=== PATIENT | female | born 1945 | race Caucasian/White ===

== ENCOUNTER 2020-08-26 00:54 | Emergency (ER) | payer MEDICARE, OTHER ==
--- NOTE | 2020-08-26 01:36 | EDM.PDOC ---
ED HPI GENERAL MEDICAL PROBLEM - General Chief Complaint: General Stated Complaint: [facility] Time Seen by Provider: 08/26/20 01:03 Source of Information: Reports: Patient History Limitations: Reports: Physical Impairment (Very hard of hearing) - History of Present Illness INITIAL COMMENTS - FREE TEXT/NARRATIVE: Mrs. Mcbride is a very pleasant 74-year-old woman who is now brought to the ED by EMS for generalized weakness. She states that she had COVID-19 in April 2020, then received her first Covid vaccine this past , 08/19/2020. She states that she developed a local inflammatory reaction to her arm that same night, with warmth and redness. She applied an ice pack to the area on 08/20/2020. He states that she developed itchy hives on 08/21/2020, which persisted through Sunday morning, 08/23/2020. She applied cortisone 10 cream. She was seen at the [facility] on Sunday, and was told to take Claritin, 1 tablet/day as long as she had itchiness, however, she states that she needed to take it for only 1 day, because the itchy hives had resolved by 08/24/2020. That same day, however, she states that she developed watery diarrhea, which has persisted. Also reports having some nausea, but no vomiting. Abdominal pain. No recent fever. No urinary symptoms. The patient states that she has been taking Pepto-Bismol either once or twice a day since Sunday, including 2 doses yesterday and 2 doses this morning. Here in the ED, the patient is found to be hemodynamically stable, afebrile, saturating 98% on room air. Prior to , 08/19/2020, the patient denies having a recent fever, chills, sore throat, ear pain, nasal or sinus congestion, cough, dyspnea, chest pain, palpitations, nausea, vomiting, constipation, diarrhea, abdominal pain, urinary symptoms, recent weight gain or weight loss, recent bloody bowel movements or black bowel movements, recent joint aches, headaches, or rashes. The patient's PCP is Dr. Helder John. She already received an influenza vaccine this season. Treatments [employer]: Reports: IV/IO - Related Data Allergies Allergy/AdvReac Type Severity Reaction Status Date / Time No Known Allergies Allergy Verified 08/26/20 01:05 Home Meds: Home Meds Ondansetron [Zofran ODT] 1 tab PO Q8H PRN #10 tab.dis 08/26/20 [Rx] Past Medical History HEENT History: Reports: Hard of Hearing, Impaired Vision Cardiovascular History: Reports: High Cholesterol, Hypertension, Other (See Below) (Temporal arteritis) Gastrointestinal History: Reports: Bowel Obstruction (s/p laparotomy), GERD (untreated) Genitourinary History: Reports: Urinary Incontinence (stress incontinence) Musculoskeletal History: Reports: Osteoarthritis Oncologic (Cancer) History: Reports: Breast (right, dx'd Jun 2004, s/p lumpectomy, CTx, RTx) - Infectious Disease History Infectious Disease History: Reports: Novel Coronavirus - Past Surgical History HEENT Surgical History: Reports: Cataract Surgery (bilateral), Oral Surgery (dental extractions) GI Surgical History: Reports: Appendectomy, Lysis of Adhesions (Exploratory laparotomy for SBO) Female Surgical History: Reports: Hysterectomy (complete) Oncologic Surgical History: Reports: Biopsy of Breast (right), Lumpectomy (right) Social & Family History - Tobacco Use Tobacco Use Status *Q: Never Tobacco User - Alcohol Use Alcohol Use History: No - Recreational Drug Use Recreational Drug Use: No - Living Situation & Occupation Living situation: Reports: , Alone Occupation: Retired ED ROS GENERAL - Review of Systems Review Of Systems: Comprehensive ROS is negative, except as noted in HPI. ED EXAM, GENERAL - Physical Exam Exam: See Below Exam Limited By: No Limitations General Appearance: Alert, WD/WN, No Apparent Distress Eye Exam: Bilateral Eye: EOMI, Normal Inspection Ears: Normal External Exam, Hearing Loss Nose: Normal Inspection Throat/Mouth: Normal Inspection, Normal Lips, Normal Voice, No Airway Compromise Head: Atraumatic, Normocephalic Neck: Normal Inspection, Full Range of Motion Respiratory/Chest: No Respiratory Distress, Lungs Clear, Normal Breath Sounds, No Accessory Muscle Use Cardiovascular: Normal Peripheral Pulses, Regular Rate, Rhythm, No Edema, No Gallop, No JVD, No Murmur, No Rub Peripheral Pulses: 3+: Radial (L), Radial (R) GI/Abdominal: Normal Bowel Sounds, Soft, Non-Tender, No Organomegaly, No Distention, No Abnormal Bruit, No Mass Back Exam: Normal Inspection, Full Range of Motion, NT Extremities: Normal Inspection, Normal Range of Motion, No Pedal Edema, Normal Capillary Refill Neurological: Alert, Oriented, Normal Cognition, No Motor/Sensory Deficits Psychiatric: Normal Affect Skin Exam: Warm, Dry, Intact, Normal Color, No Rash #1 Interpretation EKG Date: 08/26/20 Time: 01:45 Rhythm: NSR Rate (Beats/Min): 78 [place]: Normal P-Wave: Present QRS: Other (Late transition) ST-T: Normal QT: Normal Comparison: NA - No Prior EKG Course - Vital Signs Last Recorded V/S: Last Vital Signs Temp 36.2 C 08/26/20 01:03 Pulse 80 08/26/20 01:03 Resp 16 08/26/20 01:03 BP 116/68 08/26/20 01:03 Pulse Ox 98 08/26/20 01:03 Orthostatic Blood Pressure [ 93/66 Standing] Orthostatic Blood Pressure [ 107/75 Sitting] Orthostatic Blood Pressure [ 109/57 Supine] - Orders/Labs/Meds Orders: Active Orders 24 hr Category Date Time Status EKG Documentation Completion [RC] STAT Care 08/26/20 01:29 Active Orthostatic Vital Signs [RC] STAT Care 08/26/20 01:29 Active Ang Chest [CT] Stat Exams 08/26/20 02:56 Taken Labs: Laboratory Tests 08/26/20 08/26/20 08/26/20 Range/Units 01:51 01:51 01:51 WBC 7.63 (3.98-10.04) K/mm3 RBC 4.27 (3.98-5.22) M/mm3 Hgb 13.3 (11.2-15.7) gm/dl Hct 41.8 (34.1-44.9) % MCV 97.9 H (79.4-94.8) fl MCH 31.1 (25.6-32.2) pg MCHC 31.8 L (32.2-35.5) g/dl RDW Std Deviation 51.0 H (36.4-46.3) fL Plt Count 159 L (182-369) K/mm3 MPV 9.6 (9.4-12.3) fl Neutrophils % (Manual) 69 H (40-60) % Band Neutrophils % 0 (0-10) % Lymphocytes % (Manual) 21 (20-40) % Atypical Lymphs % 0 % Monocytes % (Manual) 8 (2-10) % Eosinophils % (Manual) 2 (0.7-5.8) % Basophils % (Manual) 0 L (0.1-1.2) Platelet Estimate Adequate RBC Morph Comment Normal D-Dimer, Quantitative 10.06 H (0.19-0.50) mg/L Sodium 138 (136-145) mEq/L Potassium 3.9 (3.5-5.1) mEq/L Chloride 103 (98-107) mEq/L Carbon Dioxide 22 (21-32) mEq/L Anion Gap 16.9 H (5-15) BUN 27 H (7-18) mg/dL Creatinine 1.1 H (0.55-1.02) mg/dL Est Cr Clr Drug Dosing 35.99 mL/min Estimated GFR (MDRD) 48 (>60) mL/min BUN/Creatinine Ratio 24.5 H (14-18) Glucose 107 (83-115) mg/dL Calcium 8.0 L (8.5-10.1) mg/dL Magnesium 1.8 (1.8-2.4) mg/dl Total Bilirubin 0.4 (0.2-1.0) mg/dL AST 19 (15-37) U/L ALT 22 (14-59) U/L Alkaline Phosphatase 50 (46-116) U/L Troponin I < 0.017 (0.00-0.056) ng/mL Total Protein 6.7 (6.4-8.2) g/dl Albumin 2.8 L (3.4-5.0) g/dl Globulin 3.9 gm/dL Albumin/Globulin Ratio 0.7 L (1-2) TSH 3rd Generation 3.325 (0.358-3.74) uIU/mL Urine Color (Yellow) Urine Appearance (Clear) Urine pH (5.0-8.0) Ur Specific [place] (1.005-1.030) Urine Protein (Negative) Urine Glucose (UA) (Negative) Urine Ketones (Negative) Urine Occult Blood (Negative) Urine Nitrite (Negative) Urine Bilirubin (Negative) Urine Urobilinogen (0.2-1.0) Ur Leukocyte Esterase (Negative) U Hyaline Cast (Auto) (0-5) /lpf Urine RBC (0-5) /hpf Urine WBC (0-5) /hpf Ur Squamous Epith Cells (0-5) /hpf Amorphous Sediment (NOT SEEN) /hpf Urine Bacteria (FEW) /hpf Urine Mucus (FEW) /hpf 08/26/20 Range/Units 02:15 WBC (3.98-10.04) K/mm3 RBC (3.98-5.22) M/mm3 Hgb (11.2-15.7) gm/dl Hct (34.1-44.9) % MCV (79.4-94.8) fl MCH (25.6-32.2) pg MCHC (32.2-35.5) g/dl RDW Std Deviation (36.4-46.3) fL Plt Count (182-369) K/mm3 MPV (9.4-12.3) fl Neutrophils % (Manual) (40-60) % Band Neutrophils % (0-10) % Lymphocytes % (Manual) (20-40) % Atypical Lymphs % % Monocytes % (Manual) (2-10) % Eosinophils % (Manual) (0.7-5.8) % Basophils % (Manual) (0.1-1.2) Platelet Estimate RBC Morph Comment D-Dimer, Quantitative (0.19-0.50) mg/L Sodium (136-145) mEq/L Potassium (3.5-5.1) mEq/L Chloride (98-107) mEq/L Carbon Dioxide (21-32) mEq/L Anion Gap (5-15) BUN (7-18) mg/dL Creatinine (0.55-1.02) mg/dL Est Cr Clr Drug Dosing mL/min Estimated GFR (MDRD) (>60) mL/min BUN/Creatinine Ratio (14-18) Glucose (83-115) mg/dL Calcium (8.5-10.1) mg/dL Magnesium (1.8-2.4) mg/dl Total Bilirubin (0.2-1.0) mg/dL AST (15-37) U/L ALT (14-59) U/L Alkaline Phosphatase (46-116) U/L Troponin I (0.00-0.056) ng/mL Total Protein (6.4-8.2) g/dl Albumin (3.4-5.0) g/dl Globulin gm/dL Albumin/Globulin Ratio (1-2) TSH 3rd Generation (0.358-3.74) uIU/mL Urine Color Yellow (Yellow) Urine Appearance Clear (Clear) Urine pH 5.5 (5.0-8.0) Ur Specific [place] 1.015 (1.005-1.030) Urine Protein Negative (Negative) Urine Glucose (UA) Negative (Negative) Urine Ketones Negative (Negative) Urine Occult Blood Negative (Negative) Urine Nitrite Negative (Negative) Urine Bilirubin Negative (Negative) Urine Urobilinogen 0.2 (0.2-1.0) Ur Leukocyte Esterase Negative (Negative) U Hyaline Cast (Auto) 10-20 H (0-5) /lpf Urine RBC 0-5 (0-5) /hpf Urine WBC 0-5 (0-5) /hpf Ur Squamous Epith Cells 0-5 (0-5) /hpf Amorphous Sediment Few H (NOT SEEN) /hpf Urine Bacteria Few (FEW) /hpf Urine Mucus Few (FEW) /hpf Meds: Medications Discontinued Medications Generic Name Dose Route Start Last Admin Trade Name Ramón PRN Reason Stop Dose Admin Sodium Chloride 1,000 mls @ 999 mls/hr 08/26/20 02:25 08/26/20 02:30 Normal Saline IV 08/26/20 03:25 999 mls/hr ONETIME ONE Administration Loperamide HCl 4 mg 08/26/20 04:16 08/26/20 04:23 Imodium PO 08/26/20 04:17 4 mg ONETIME STA Administration Ondansetron HCl 4 mg 08/26/20 02:25 08/26/20 02:31 Zofran IVPUSH 08/26/20 02:26 4 mg ONETIME ONE Administration - Re-Assessments/Exams Free Text/Narrative Re-Assessment/Exam: 08/26/20 01:31 Nausea, vomiting, and diarrhea, or reported adverse reactions to the COVID-19 vaccine, although they typically only last for 1 to 2 days, where is in the patient's situation, her diarrhea did not begin until 5 days after the vaccine, therefore it is more likely that her gastrointestinal symptoms are due to viral gastroenteritis, which we are also seeing in the community at this time. I have ordered a work-up that includes orthostatics, several blood tests, a urinalysis by quick catheter, and an ECG. I will order some Zofran, but will wait to see what her orthostatics look like before ordering IV fluid. 08/26/20 02:26 The patient is not orthostatic. 08/26/20 02:57 The patient's CBC is remarkable for modest thrombocytopenia of 156,000, and is otherwise unremarkable. Her CMP is remarkable for an anion gap slightly elevated at 16.9, but with a bicarbonate normal at 22. Her BUN/Cr slightly elevated at 27/1.1, with the remainder of her CMP being unremarkable. Her magnesium level is within normal limits at 1.8. Her TSH is within normal limits at 3.325. Her troponin is undetectably low. Her D-dimer is significantly elevated at 10.06. Her urinalysis has not yet resulted. Based on the above, I have ordered a CT angiogram of the chest to evaluate for PE. 08/26/20 04:05 The patient's urinalysis is unremarkable. CT angiogram of the chest is read by [facility] as: 1. No acute findings. No evidence of pulmonary embolism. 2. Non-acute findings are described above. 08/26/20 04:16 Test results discussed with the patient. She states that she is feeling well. Her nausea and diarrhea appear to be due to viral gastroenteritis, which we are seeing quite a bit of at this time. I suspect that her elevated D-dimer is a remnant from her COVID-19 in April. She states that her last episode of diarrhea was around 23:00, therefore she will be given a single dose of loperamide prior to being discharged home. She can purchase additional loperamide [id number]. I will submit a prescription for Zofran ODT, and give her some dietary recommendations. Departure - Departure Time of Disposition: 04:17 Disposition: Home, Self-Care 01 Condition: Good Clinical Impression: Viral gastroenteritis - Discharge Information *PRESCRIPTION DRUG MONITORING PROGRAM REVIEWED*: Not Applicable *COPY OF PRESCRIPTION DRUG MONITORING REPORT IN PATIENT SHELLY: Not Applicable Prescriptions: Ondansetron [Zofran ODT] 1 tab PO Q8H PRN #10 tab.dis PRN Reason: Nausea/Vomiting Instructions: Viral Gastroenteritis, Adult, [id number] Referrals: Helder John MD [Primary Care Provider] - Forms: ED Department Discharge Additional Instructions: You were seen in the emergency room after developing watery diarrhea with nausea on 08/24/2020. Work-up in the ER included positional blood pressure checks, several blood tests, a urinalysis, a CT angiogram of your chest, and an ECG. Your entire work-up was unremarkable. You are not dehydrated. You have not suffered any heart damage. You do not have a blood clot in your lungs. You do not have a urinary tract infection. Based on your history, physical exam, and ER tests, your nausea and diarrhea are most likely due to viral gastroenteritis, not a consequence of your COVID-19 vaccine. You have been started on the anti-diarrhea medicine loperamide. Loperamide is available [id number], and generic loperamide is just as good as name-brand Imodium AD. You may take 1 tablet (2 mg) loperamide after each loose bowel movement, to a maximum of 8 tablets (16 mg) within a 24-hour period. Don't get that you were given 4 mg in the ER. A prescription for the anti-nausea medicine Zofran has been sent to the [facility] pharmacy. You may dissolve 1 tablet of Zofran on your tongue up to every 8 hours, as needed for nausea/vomiting. We advise that you stop taking Pepto-Bismol. Stay adequately hydrated. Gatorade or Powerade are best. Since you have diarrhea, we recommend that you avoid juice and milk, since these may make your diarrhea worse. If you are hungry, we recommend a bland diet, including rice or oatmeal. Chicken noodle soup with saltine crackers is an excellent choice. If your symptoms persist, we recommend that you follow-up with your PCP, Dr. Helder John. If any other problems, please do not hesitate to return to the ER. Sepsis Event Note (ED) - Evaluation Sepsis Screening Result: No Definite Risk - Focused Exam Vital Signs: Vital Signs Temp Pulse Resp BP Pulse Ox 08/26/20 01:03 36.2 C 80 16 116/68 98 - My Orders Last 24 Hours: My Active Orders 08/26/20 01:29 EKG Documentation Completion [RC] STAT Orthostatic Vital Signs [RC] STAT 08/26/20 02:56 Ang Chest [CT] Stat - Assessment/Plan Last 24 Hours: My Active Orders 08/26/20 01:29 EKG Documentation Completion [RC] STAT Orthostatic Vital Signs [RC] STAT 08/26/20 02:56 Ang Chest [CT] Stat
[2020-08-26] MEDS ORDERED: Ondansetron 4 MG/2 ML SDV IVPUSH ONE (02:25)
[2020-08-26] MEDS ORDERED: Sodium Chloride 0.9% 1,000 ML IV ONE (02:25)
[2020-08-26] MEDS ORDERED: Loperamide 2 MG Cap PO STA (04:16)
[2020-08-26] MEDS ORDERED: Ondansetron 4 MG Tab.DIS PO ONE (04:19)
--- NOTE | 2020-08-26 08:54 | CT ---
CT chest Technique: Multiple axial sections through the chest were obtained. Intravenous contrast was utilized. Study has been performed as a pulmonary angiogram protocol. Comparison: No previous chest imaging is available. Findings: Pulmonary arteries are well opacified. No filling defects are seen to indicate pulmonary embolism. Thoracic aorta shows atherosclerotic calcification which continues into the peripheral vessels. No aneurysm is seen. Small mediastinal lymph nodes are noted and believed to be within normal limits. Mild coronary artery calcification is seen. Heart is slightly enlarged. Cyst is noted within the right lobe of the liver measuring approximately 1.2 cm. Small parapelvic cysts are noted within both kidneys. Small parenchymal cyst is also noted within the left kidney measuring approximately 8 mm. Lungs show mild areas of dependent atelectasis within both posterior bases. Mild areas of scarring and possible minimal atelectasis within the lung bases. No pleural effusions are noted. Slight probable scarring within the right middle lobe is seen. No acute parenchymal change is appreciated. Impression: 1. No findings of pulmonary embolism. 2. Other findings as noted above which are felt to be nonacute. 3. Nothing acute is otherwise seen. Diagnostic code #2 I agree with preliminary report from [facility], finalized on 08/26/20, 5:02 AM WORKFORCE DEVELOPMENT ASSISTANT
== END 2020-08-26 05:15 | disposition home or self-care (01) ==
LOC: JD.ED 00:54
DX: A08.4 Viral intestinal infection, unspecified (principal); I10 Essential (primary) hypertension
CPT/HCPCS: 36415; 71275; 80053; 81001; 83735; 84443; 84484; 85007; 85027; 85379; 93005; 96374; 99285; A9270; J2405; J7030; 93010; 99283

== ENCOUNTER 2021-10-25 11:51 | Emergency (ER) | payer MEDICARE, OTHER ==
[2021-10-25] MEDS ORDERED: Sodium Chloride 0.9% 10 ML Syringe FLUSH PRN (12:31)
== END 2021-10-25 16:47 | disposition home or self-care (01) ==
LOC: JD.ED 11:51
DX: I47.1 Supraventricular tachycardia (principal); R79.89 Other specified abnormal findings of blood chemistry; I10 Essential (primary) hypertension; K21.9 Gastro-esophageal reflux disease without esophagitis; E78.00 Pure hypercholesterolemia, unspecified; M19.90 Unspecified osteoarthritis, unspecified site; Z79.899 Other long term (current) drug therapy
CPT/HCPCS: 36415; 71045; 80053; 83735; 84443; 84484; 85025; 93005; 99284; J3490; 93010; 99285

== ENCOUNTER 2021-10-30 17:56 | Inpatient (IN) | payer MEDICARE, OTHER ==
[2021-10-30] MEDS ORDERED: Sodium Chloride 0.9% 10 ML Syringe FLUSH PRN (18:01)
[2021-10-30] MEDS ORDERED: Apixaban 5 MG Tab PO ONE (18:55)
[2021-10-30] MEDS ORDERED: Diltiazem IR 30 MG Tab PO ONE (19:22)
[2021-10-30] MEDS ORDERED: Acetaminophen 325 MG Tab PO PRN (20:06)
[2021-10-30 20:41] LABS: HEMOGLOBIN A1C 6.3 %
[2021-10-30] MEDS: Diltiazem IR 30 MG Tab PO SCH (21:35)
[2021-10-30] MEDS: Metoprolol Tartrate 50 MG Tab PO SCH (21:35)
[2021-10-30] MEDS: Acetaminophen 325 MG Tab PO SCH (21:36)
[2021-10-30] MEDS: Calcium Carbonate 600 MG Tab PO SCH (22:38)
[2021-10-31] MEDS: Diltiazem IR 30 MG Tab PO SCH ×3 (00:21→09:19)
[2021-10-31] MEDS ORDERED: Spironolactone 25 MG Tab PO SCH (09:00)
[2021-10-31] MEDS ORDERED: Rosuvastatin 10 MG Tab PO SCH (09:00)
[2021-10-31] MEDS: Metoprolol Tartrate 50 MG Tab PO SCH (09:17)
[2021-10-31] MEDS: Calcium Carbonate 600 MG Tab PO SCH (09:17)
[2021-10-31] MEDS: Acetaminophen 325 MG Tab PO SCH ×2 (09:18→15:06)
[2021-10-31] MEDS ORDERED: Apixaban 5 MG Tab PO SCH (10:00)
[2021-10-31] MEDS ORDERED: Bisacodyl 5 MG Tab PO PRN (11:51)
[2021-10-31] MEDS ORDERED: guaiFENesin 600 MG Tab.ER PO PRN (11:51)
[2021-10-31] MEDS ORDERED: Diltiazem 180 MG Cap.CD PO SCH (12:00)
[2021-10-31] MEDS ORDERED: Furosemide 20 MG Tab PO ONE (12:00)
[2021-10-31] MEDS ORDERED: Furosemide 20 MG Tab PO SCH (12:00)
[2021-10-31] MEDS ORDERED: Diltiazem IR 30 MG Tab PO SCH (15:00)
[2021-10-31] MEDS ORDERED: Calcium Carbonate 600 MG Tab PO SCH (17:00)
[2021-10-31] MEDS ORDERED: Metoprolol Tartrate 50 MG Tab PO SCH (21:00)
[2021-11-01] MEDS ORDERED: Metoprolol Tartrate 50 MG Tab PO SCH (09:00)
[2021-11-01] MEDS ORDERED: Aspirin 81 MG Tab.EC PO SCH (09:00)
== END 2021-10-31 18:48 | disposition home or self-care (01) | DRG 310 ==
LOC: JD.ED 17:56 → JD.MS 20:06
PROVIDERS: ADMIT Pediatrics; ATTEND Pediatrics
DX: R07.9 Chest pain, unspecified (principal); H91.90 Unspecified hearing loss, unspecified ear; H54.7 Unspecified visual loss; I48.91 Unspecified atrial fibrillation; R77.8 Other specified abnormalities of plasma proteins; K21.9 Gastro-esophageal reflux disease without esophagitis; R32 Unspecified urinary incontinence; I47.1 Supraventricular tachycardia; Z85.3 Personal history of malignant neoplasm of breast; Z88.2 Allergy status to sulfonamides; Z79.52 Long term (current) use of systemic steroids; A08.4 Viral intestinal infection, unspecified; I35.0 Nonrheumatic aortic (valve) stenosis; R00.1 Bradycardia, unspecified; I10 Essential (primary) hypertension; E78.5 Hyperlipidemia, unspecified; M06.9 Rheumatoid arthritis, unspecified; E78.00 Pure hypercholesterolemia, unspecified; Z20.822 Contact with and (suspected) exposure to COVID-19; M19.90 Unspecified osteoarthritis, unspecified site; Z90.710 Acquired absence of both cervix and uterus; Z79.899 Other long term (current) drug therapy; Z90.11 Acquired absence of right breast and nipple; Z90.49 Acquired absence of other specified parts of digestive tract; Z98.49 Cataract extraction status, unspecified eye; E66.9 Obesity, unspecified
CPT/HCPCS: 36415; 71045; 80053; 83036; 83735; 83880; 84443; 84484; 85025; 93005; A9270 ×2; J3490; U0002; 78452; 78452-26; 81001; 85379; 85652; 86140; 87086; 93017; 93306; 93880; 93880-26; 97161-GP; 99285-25; A9500; J2785

== ENCOUNTER 2021-11-14 13:19 | Emergency (ER) | payer MEDICARE, OTHER ==
[2021-11-14] MEDS ORDERED: Sodium Chloride 0.9% 10 ML Syringe FLUSH PRN (13:32)
[2021-11-14] MEDS ORDERED: Acetaminophen 325 MG Tab PO ONE (14:56)
== END 2021-11-14 15:40 | disposition home or self-care (01) ==
LOC: JD.ED 13:19
DX: R07.89 Other chest pain (principal); E78.00 Pure hypercholesterolemia, unspecified; I10 Essential (primary) hypertension; K21.9 Gastro-esophageal reflux disease without esophagitis; M19.90 Unspecified osteoarthritis, unspecified site; Z88.2 Allergy status to sulfonamides; Z79.01 Long term (current) use of anticoagulants; Z79.899 Other long term (current) drug therapy; Z79.84 Long term (current) use of oral hypoglycemic drugs
CPT/HCPCS: 36415; 71045; 80053; 83735; 83880; 84484; 85007; 85027; 85379; 85610; 85730; 93005; 99285; A9270; J3490

== ENCOUNTER 2021-11-28 09:31 | Emergency (ER) | payer MEDICARE, OTHER ==
[2021-11-28] MEDS ORDERED: Adenosine 6 MG/2 ML SDV ONE (09:55)
[2021-11-28] MEDS ORDERED: Adenosine 12 MG/4 ML SDV ONE (09:55)
== END 2021-11-28 12:45 | disposition home or self-care (01) ==
LOC: JD.ED 09:31
DX: I47.1 Supraventricular tachycardia (principal); E78.00 Pure hypercholesterolemia, unspecified; I10 Essential (primary) hypertension; Z86.16 Personal history of COVID-19; Z90.49 Acquired absence of other specified parts of digestive tract; Z90.710 Acquired absence of both cervix and uterus; Z88.2 Allergy status to sulfonamides; Z79.01 Long term (current) use of anticoagulants; Z79.84 Long term (current) use of oral hypoglycemic drugs; Z79.899 Other long term (current) drug therapy
CPT/HCPCS: 36415; 80053; 83735; 84484; 85025; 93005; 99285-25

== ENCOUNTER 2022-01-09 14:58 | Emergency (ER) | payer MEDICARE, OTHER ==
[2022-01-09] MEDS ORDERED: Diltiazem 50 MG/10 ML SDV IVPUSH ONE ×2 (15:48→16:11)
[2022-01-09] MEDS ORDERED: Diltiazem IR 30 MG Tab PO ONE (15:52)
[2022-01-09 17:11] LABS: CORONAVIRUS COVID-19 NAA NEGATIVE (NEGATIVE)
[2022-01-09] MEDS ORDERED: Amoxicillin/Clavulanate K 875-125 MG Tab PO ONE (18:53)
== END 2022-01-09 20:00 | disposition home or self-care (01) ==
LOC: JD.ED 14:58
DX: I48.0 Paroxysmal atrial fibrillation (principal); J18.9 Pneumonia, unspecified organism; E78.00 Pure hypercholesterolemia, unspecified; I10 Essential (primary) hypertension; K21.9 Gastro-esophageal reflux disease without esophagitis; M19.90 Unspecified osteoarthritis, unspecified site; Z88.2 Allergy status to sulfonamides; Z79.01 Long term (current) use of anticoagulants; Z79.899 Other long term (current) drug therapy; Z86.16 Personal history of COVID-19; Z20.822 Contact with and (suspected) exposure to COVID-19
CPT/HCPCS: 0241U; 36415; 71045; 80053; 84443; 85025; 85610; 93005; 93225; 93226; 96374; 99285; A9270; J3490; 93010; 99284

== ENCOUNTER 2022-01-12 09:33 | Inpatient (IN) | payer MEDICARE, OTHER ==
[2022-01-12] MEDS ORDERED: Adenosine 6 MG/2 ML SDV IVPUSH ONE (10:27)
[2022-01-12] MEDS ORDERED: Adenosine 6 MG/2 ML SDV ONE (10:28)
[2022-01-12] MEDS ORDERED: Adenosine 12 MG/4 ML SDV ONE (10:28)
[2022-01-12] MEDS ORDERED: Sodium Chloride 0.9% 1,000 ML IV SCH (10:30)
[2022-01-12] MEDS ORDERED: Diltiazem 50 MG/10 ML SDV IVPUSH ONE ×4 (10:39→12:38)
[2022-01-12] MEDS ORDERED: Diltiazem 100 MG in Sodium Chloride 0.9% 100 ML IV SCH (10:45)
[2022-01-12 11:25] LABS: HEMOGLOBIN A1C 6.2 %
[2022-01-12] MEDS ORDERED: Ondansetron 4 MG/2 ML SDV IV PRN (13:21)
[2022-01-12] MEDS ORDERED: Magnesium Sulfate/Water 2 GM in Premix Bag 1 BAG IV ONE (14:00)
[2022-01-12] MEDS ORDERED: Diltiazem 120 MG Cap.CD PO ONE (14:02)
[2022-01-12] MEDS: Apixaban 5 MG Tab PO SCH (20:18)
[2022-01-12] MEDS: Metoprolol Tartrate 100 MG Tab PO SCH (20:18)
[2022-01-13] MEDS ORDERED: Diltiazem 120 MG Cap.CD PO SCH (09:00)
[2022-01-13] MEDS: Apixaban 5 MG Tab PO SCH ×2 (09:31→21:01)
[2022-01-13] MEDS: Metoprolol Tartrate 100 MG Tab PO SCH (09:35)
[2022-01-13] MEDS ORDERED: Albumin 25% 12.5 GM in Premix Bag 1 BAG IV ONE (15:15)
[2022-01-13] MEDS: Acetaminophen 325 MG Tab PO PRN (16:25)
[2022-01-13] MEDS: Diltiazem 120 MG Cap.CD PO SCH (21:03)
[2022-01-13] MEDS: Metoprolol Tartrate 25 MG Tab PO SCH (21:04)
[2022-01-14] MEDS ORDERED: Metoprolol Tartrate 5 MG/5 ML SDV IVPUSH ONE (01:54)
[2022-01-14] MEDS ORDERED: Metoprolol Tartrate 5 MG/5 ML SDV ONE (02:05)
[2022-01-14] MEDS ORDERED: Diltiazem 50 MG/10 ML SDV IVPUSH ONE (03:05)
[2022-01-14] MEDS: Diltiazem 120 MG Cap.CD PO SCH ×2 (03:26→21:29)
[2022-01-14] MEDS: Metoprolol Tartrate 25 MG Tab PO SCH ×2 (09:06→21:28)
[2022-01-14] MEDS: Apixaban 5 MG Tab PO SCH (09:17)
[2022-01-14] MEDS ORDERED: Sodium Chloride 0.9% 100 ML IV SCH (10:20)
[2022-01-14] MEDS ORDERED: Iopamidol 755 Mg/ML 100 ML Bottle IVPUSH ONE (10:20)
[2022-01-14] MEDS ORDERED: Sodium Chloride 0.9% 10 ML Syringe FLUSH PRN (10:20)
[2022-01-14] MEDS: Pantoprazole 40 MG Vial IVPUSH SCH (12:04)
[2022-01-15] MEDS: Metoprolol Tartrate 25 MG Tab PO SCH ×2 (07:59→21:32)
[2022-01-15] MEDS: Diltiazem 120 MG Cap.CD PO SCH ×2 (08:00→21:32)
[2022-01-15] MEDS: Pantoprazole 40 MG Vial IVPUSH SCH (08:01)
[2022-01-15] MEDS: Acetaminophen 325 MG Tab PO PRN (13:02)
[2022-01-16] MEDS: Pantoprazole 40 MG Vial IVPUSH SCH (08:05)
[2022-01-16] MEDS: Diltiazem 120 MG Cap.CD PO SCH ×2 (08:06→20:13)
[2022-01-16] MEDS: Metoprolol Tartrate 25 MG Tab PO SCH ×2 (08:06→20:12)
[2022-01-16] MEDS: Acetaminophen 325 MG Tab PO PRN (10:08)
[2022-01-16] MEDS ORDERED: Magnesium Sulfate/Water 2 GM in Premix Bag 1 BAG IV ONE (10:36)
[2022-01-16] MEDS: guaiFENesin 600 MG Tab.ER PO SCH ×2 (11:40→20:13)
[2022-01-16] MEDS: Spironolactone 25 MG Tab PO SCH (13:51)
[2022-01-16] MEDS: Apixaban 5 MG Tab PO SCH (20:13)
[2022-01-17] MEDS: Metoprolol Tartrate 25 MG Tab PO SCH (08:18)
[2022-01-17] MEDS: Apixaban 5 MG Tab PO SCH (08:19)
[2022-01-17] MEDS: Diltiazem 120 MG Cap.CD PO SCH (08:19)
[2022-01-17] MEDS: Spironolactone 25 MG Tab PO SCH (08:19)
[2022-01-17] MEDS: guaiFENesin 600 MG Tab.ER PO SCH (08:19)
[2022-01-17] MEDS ORDERED: Pantoprazole 40 MG Tab.CR PO SCH (09:00)
[2022-01-17] MEDS ORDERED: Metoprolol Tartrate 25 MG Tab PO SCH ×2 (09:00→21:00)
[2022-01-17] MEDS ORDERED: Metoprolol Tartrate 100 MG Tab PO SCH (21:00)
== END 2022-01-17 17:30 | disposition home or self-care (01) | DRG 309 ==
LOC: JD.ED 09:33 → JD.ICU 13:10 → JD.MS 17:36
PROVIDERS: ADMIT Internal Medicine; ATTEND Internal Medicine
DX: I48.0 Paroxysmal atrial fibrillation (principal); E46 Unspecified protein-calorie malnutrition; I50.9 Heart failure, unspecified; R79.82 Elevated C-reactive protein (CRP); E11.9 Type 2 diabetes mellitus without complications; I48.91 Unspecified atrial fibrillation; I47.1 Supraventricular tachycardia; I10 Essential (primary) hypertension; I48.92 Unspecified atrial flutter; D64.9 Anemia, unspecified; I50.810 Right heart failure, unspecified; M31.6 Other giant cell arteritis; R77.8 Other specified abnormalities of plasma proteins; E78.5 Hyperlipidemia, unspecified; K21.9 Gastro-esophageal reflux disease without esophagitis; I11.0 Hypertensive heart disease with heart failure; G47.34 Idiopathic sleep related nonobstructive alveolar hypoventilation; R60.0 Localized edema; E83.42 Hypomagnesemia; I95.9 Hypotension, unspecified; H91.90 Unspecified hearing loss, unspecified ear; I35.0 Nonrheumatic aortic (valve) stenosis; H54.7 Unspecified visual loss; E78.00 Pure hypercholesterolemia, unspecified; R32 Unspecified urinary incontinence; M19.90 Unspecified osteoarthritis, unspecified site; Z98.49 Cataract extraction status, unspecified eye; Z86.16 Personal history of COVID-19; Z79.899 Other long term (current) drug therapy; Z79.01 Long term (current) use of anticoagulants; Z85.3 Personal history of malignant neoplasm of breast; Z79.84 Long term (current) use of oral hypoglycemic drugs; Z86.19 Personal history of other infectious and parasitic diseases; Z88.2 Allergy status to sulfonamides; Z90.11 Acquired absence of right breast and nipple; Z90.710 Acquired absence of both cervix and uterus; Z68.26 Body mass index [BMI] 26.0-26.9, adult
CPT/HCPCS: 36415; 71045; 80053; 82553; 82607; 82746; 83036; 83735; 83880; 84443; 85025; 85610; 85730; 86140; 93005; 96365; 96366; 96375; 96376; 99285; J0153; J3490 ×4; J7030; 71046; 71046-26; 74175; 74175-26; 80048; 81001; 82272; 82947; 83540; 83605; 84145; 84466; 85018; 85027; 86850; 86900; 86901; 92523-GN; 93010; 93225; 93226; 93306; 94761; 94762; 97116-GP; 97162-GP; 97530-GP; 99232; 99239; 99284; A9270-GY; C9113; J2405; J3475; J7509; P9047; Q9967

== ENCOUNTER 2022-01-18 11:01 | Inpatient (IN) | payer MEDICARE, OTHER ==
[2022-01-18] MEDS ORDERED: Sodium Chloride 0.9% 10 ML Syringe FLUSH PRN (11:20)
[2022-01-18] MEDS ORDERED: Sodium Chloride 0.9% 1,000 ML IV STA (11:23)
[2022-01-18 12:36] LABS: ESTIMATED GFR 65 mL/min (>60)
[2022-01-18 12:45] LABS: CORONAVIRUS COVID-19 NAA NEGATIVE (NEGATIVE)
[2022-01-18] MEDS ORDERED: cefTRIAXone 2 GM in Sodium Chloride 0.9% 100 ML IV ONE (12:45)
[2022-01-18] MEDS ORDERED: Ondansetron 4 MG/2 ML SDV IVPUSH ONE (13:24)
[2022-01-18] MEDS ORDERED: Furosemide 20 MG/2 ML VIAL IVPUSH ONE (14:34)
[2022-01-18] MEDS ORDERED: Furosemide 20 MG/2 ML VIAL IVPUSH SCH (17:00)
[2022-01-18] MEDS ORDERED: 50% Dextrose in Water 50 ML Syringe IVPUSH PRN (17:01)
[2022-01-18] MEDS ORDERED: Acetaminophen 325 MG Tab PO PRN (17:48)
[2022-01-18] MEDS ORDERED: Insulin Regular, Human 100 Units/ML 3 ML Vial SUBCUT SCH (19:00)
[2022-01-18] MEDS: Apixaban 5 MG Tab PO SCH ×2 (19:33→23:45)
[2022-01-18] MEDS ORDERED: Levofloxacin/Dextrose 5%-Water 750 MG in Premix Bag 1 BAG IV SCH (20:00)
[2022-01-18] MEDS ORDERED: Diltiazem 50 MG/10 ML SDV IVPUSH PRN (20:30)
[2022-01-18] MEDS ORDERED: Metoprolol Tartrate 25 MG Tab PO SCH (21:00)
[2022-01-18] MEDS ORDERED: Non-Formulary Medication 1 Each (Cyclosporine [Restasis Multidose] 5.5 ML Drops) EYEBOTH SCH (21:00)
[2022-01-18] MEDS ORDERED: Diltiazem 120 MG Cap.CD PO SCH (21:00)
[2022-01-18] MEDS ORDERED: Sodium Chloride 0.9% 250 ML IV SCH (21:45)
[2022-01-18] MEDS ORDERED: Norepinephrine 4 MG in Dextrose 5% in Water 246 ML IV SCH ×2 (23:00)
[2022-01-18] MEDS ORDERED: Magnesium Sulfate (4.06 MEQ/ML) 5 GM/10 ML SDV IV STA (23:22)
[2022-01-18] MEDS ORDERED: Magnesium Sulfate/Water 2 GM in Premix Bag 1 BAG IV ONE (23:45)
[2022-01-18] MEDS ORDERED: Albuterol 0.042% 1.25 MG/3 ML Neb Soln NEB PRN (23:53)
[2022-01-19] MEDS ORDERED: metFORMIN 500 MG Tab PO SCH (09:00)
[2022-01-19] MEDS ORDERED: Rosuvastatin 10 MG Tab PO SCH (09:00)
[2022-01-19] MEDS ORDERED: Folic Acid 1 MG Tab PO SCH (09:00)
== END 2022-01-19 01:00 | DRG 871 ==
LOC: JD.ED 11:01 → JD.MS 16:26
PROVIDERS: ADMIT Internal Medicine Cardiovascular Disease; ATTEND Internal Medicine Cardiovascular Disease
DX: A41.9 Sepsis, unspecified organism (principal); R65.21 Severe sepsis with septic shock; N39.0 Urinary tract infection, site not specified; R77.8 Other specified abnormalities of plasma proteins; J18.9 Pneumonia, unspecified organism; E78.00 Pure hypercholesterolemia, unspecified; I10 Essential (primary) hypertension; I50.31 Acute diastolic (congestive) heart failure; R32 Unspecified urinary incontinence; M19.90 Unspecified osteoarthritis, unspecified site; Z85.3 Personal history of malignant neoplasm of breast; I48.91 Unspecified atrial fibrillation; Z88.2 Allergy status to sulfonamides; Z20.822 Contact with and (suspected) exposure to COVID-19; Z79.4 Long term (current) use of insulin; R53.1 Weakness; Z28.311 Partially vaccinated for COVID-19; K21.9 Gastro-esophageal reflux disease without esophagitis; I11.0 Hypertensive heart disease with heart failure; E78.5 Hyperlipidemia, unspecified; Z79.899 Other long term (current) drug therapy; Z79.52 Long term (current) use of systemic steroids; Z97.3 Presence of spectacles and contact lenses; Z79.01 Long term (current) use of anticoagulants; Z90.49 Acquired absence of other specified parts of digestive tract; Z86.16 Personal history of COVID-19; Z98.42 Cataract extraction status, left eye; Z98.41 Cataract extraction status, right eye; Z90.710 Acquired absence of both cervix and uterus; Z90.11 Acquired absence of right breast and nipple; Z90.89 Acquired absence of other organs; Z98.890 Other specified postprocedural states
CPT/HCPCS: 0240U; 36415; 36600; 71045; 80053; 81001; 82803; 82947; 83605; 83735; 83880; 84145; 84484; 85007; 85027; 85610; 86140; 87040; 87086; 93005; 94761; 87088; 87186; A9270-GY; J0696; J1815-GY; J1940; J1956; J2405; J3475; J3490; J7030; J7060; J7509

== ENCOUNTER 2022-03-09 10:47 | Emergency (ER) | payer MEDICARE, OTHER ==
[2022-03-09 11:58] LABS: ESTIMATED GFR 51 mL/min (>60)
[2022-03-09] MEDS ORDERED: Potassium Chloride 20 MEQ Tab.ER PO ONE (12:07)
[2022-03-09] MEDS ORDERED: Sodium Chloride 0.9% 1,000 ML IV STA (12:08)
[2022-03-09] MEDS: Potassium Chloride 10 MEQ in Premix Bag 1 BAG IV SCH ×4 (12:35→17:49)
[2022-03-09] MEDS ORDERED: Magnesium Sulfate/Water 4 GM in Premix Bag 1 BAG IV ONE (15:18)
== END 2022-03-09 21:00 ==
LOC: JD.ED 10:47
DX: E87.6 Hypokalemia (principal); E83.42 Hypomagnesemia; I48.91 Unspecified atrial fibrillation; E78.00 Pure hypercholesterolemia, unspecified; I10 Essential (primary) hypertension; K21.9 Gastro-esophageal reflux disease without esophagitis; E11.9 Type 2 diabetes mellitus without complications; Z86.16 Personal history of COVID-19; Z88.2 Allergy status to sulfonamides; Z79.01 Long term (current) use of anticoagulants; Z79.4 Long term (current) use of insulin
CPT/HCPCS: 36415; 80053; 83735; 85025; 93005; 96365; 96366; 96367; 96368; 99285; A9270; J3475; J3480; J7030; 93010; 99284

== ENCOUNTER 2022-07-19 11:32 | Inpatient (IN) | payer MEDICARE, OTHER ==
[2022-07-19] MEDS ORDERED: Sodium Chloride 0.9% 1,000 ML IV STA (11:47)
[2022-07-19 12:43] LABS: ESTIMATED GFR 46 mL/min (>60)
[2022-07-19] MEDS ORDERED: Iopamidol 755 Mg/ML 100 ML Bottle IVPUSH ONE ×2 (12:55→14:18)
[2022-07-19] MEDS ORDERED: Sodium Chloride 0.9% 10 ML Syringe FLUSH PRN ×2 (12:55→14:18)
[2022-07-19] MEDS ORDERED: Sodium Chloride 0.9% 100 ML IV SCH ×2 (13:00→14:30)
[2022-07-19] MEDS ORDERED: Metoprolol Tartrate 50 MG Tab PO ONE (17:03)
[2022-07-19] MEDS ORDERED: Acetaminophen 325 MG Tab PO PRN (18:02)
[2022-07-19] MEDS: cloNIDine 0.1 MG Tab PO SCH (18:29)
[2022-07-20] MEDS: cloNIDine 0.1 MG Tab PO SCH ×2 (01:15→10:05)
[2022-07-20] MEDS ORDERED: Metoprolol Tartrate 50 MG Tab PO SCH (10:00)
[2022-07-20] MEDS ORDERED: metFORMIN 500 MG Tab PO SCH (10:00)
[2022-07-20] MEDS ORDERED: busPIRone 15 MG Tab PO SCH (10:00)
[2022-07-20] MEDS ORDERED: Amiodarone 200 MG Tab PO SCH (10:00)
[2022-07-20] MEDS ORDERED: Pantoprazole 40 MG Tab.CR PO SCH (10:00)
[2022-07-20] MEDS ORDERED: QUEtiapine 25 MG Tab PO SCH (21:00)
[2022-07-20] MEDS ORDERED: CYCLOSPORINE EYEBOTH SCH (21:00)
[2022-07-20] MEDS ORDERED: Donepezil 10 MG Tab PO SCH (21:00)
== END 2022-07-20 14:25 | disposition home or self-care (01) | DRG 301 ==
LOC: JD.ED 11:32 → JD.ICU 18:00
PROVIDERS: ADMIT Internal Medicine; ATTEND Internal Medicine
DX: I71.012 Dissection of descending thoracic aorta (principal); R55 Syncope and collapse; I48.0 Paroxysmal atrial fibrillation; E11.9 Type 2 diabetes mellitus without complications; Z66 Do not resuscitate; H54.7 Unspecified visual loss; H91.90 Unspecified hearing loss, unspecified ear; I10 Essential (primary) hypertension; E78.00 Pure hypercholesterolemia, unspecified; R32 Unspecified urinary incontinence; M19.90 Unspecified osteoarthritis, unspecified site; Z85.3 Personal history of malignant neoplasm of breast; Z86.16 Personal history of COVID-19; Z86.19 Personal history of other infectious and parasitic diseases; K21.9 Gastro-esophageal reflux disease without esophagitis; Z79.4 Long term (current) use of insulin; Z88.2 Allergy status to sulfonamides; Z79.01 Long term (current) use of anticoagulants; Z98.49 Cataract extraction status, unspecified eye; Z90.49 Acquired absence of other specified parts of digestive tract; Z90.710 Acquired absence of both cervix and uterus; Z90.11 Acquired absence of right breast and nipple; Z79.899 Other long term (current) drug therapy
CPT/HCPCS: 36415; 71045; 71260; 71275; 74177; 80053; 81003; 84484; 85025; 85379; 86140; 87651; 93005; J3490 ×2; J7030; Q9967 ×2; 82947; A9270-GY

== ENCOUNTER 2022-11-11 10:45 | Emergency (ER) | payer MEDICARE, OTHER ==
[2022-11-11 11:40] LABS: ESTIMATED GFR 46 mL/min (>60)
[2022-11-11] MEDS ORDERED: Nitrofurantoin Monohydrate/Macrocrystalline 100 MG Cap PO STA (15:33)
[2022-11-11] MEDS ORDERED: Sodium Chloride 0.9% 10 ML Syringe FLUSH ONE (16:31)
[2022-11-11] MEDS ORDERED: Iopamidol 755 Mg/ML 100 ML Bottle IVPUSH ONE (16:31)
[2022-11-11] MEDS ORDERED: Sodium Chloride 0.9% 100 ML IV SCH (16:45)
== END 2022-11-11 16:10 | disposition home or self-care (01) ==
LOC: JD.ED 10:45
DX: R40.20 Unspecified coma (principal); N39.0 Urinary tract infection, site not specified; I11.0 Hypertensive heart disease with heart failure; I50.9 Heart failure, unspecified; K21.9 Gastro-esophageal reflux disease without esophagitis; E11.9 Type 2 diabetes mellitus without complications; Z88.2 Allergy status to sulfonamides; Z79.899 Other long term (current) drug therapy; Z79.01 Long term (current) use of anticoagulants; Z79.84 Long term (current) use of oral hypoglycemic drugs; Z86.16 Personal history of COVID-19; Z90.49 Acquired absence of other specified parts of digestive tract; Z90.710 Acquired absence of both cervix and uterus; Z20.822 Contact with and (suspected) exposure to COVID-19
CPT/HCPCS: 36415; 70450; 70496; 70498; 80053; 81001; 84484; 85025; 85379; 85610; 85730; 87086; 87088; 87186; 93005; 99284; A9270; J3490; Q9967; U0002; 93010; 99285

== ENCOUNTER 2023-07-05 09:29 | Emergency (ER) | payer MEDICARE, OTHER | END 2023-07-05 11:04 | disposition home or self-care (01) | LOC: JD.ED 09:29 | DX: L03.114 Cellulitis of left upper limb (principal); I80.8 Phlebitis and thrombophlebitis of other sites; E11.9 Type 2 diabetes mellitus without complications; Z88.2 Allergy status to sulfonamides; Z79.899 Other long term (current) drug therapy; Z79.01 Long term (current) use of anticoagulants; Z86.16 Personal history of COVID-19 | CPT/HCPCS: 99283; 99284 ==

== ENCOUNTER 2023-07-09 11:21 | Emergency (ER) | payer MEDICARE, OTHER ==
[2023-07-09] MEDS ORDERED: Sodium Chloride 0.9% 1,000 ML IV SCH (12:15)
[2023-07-09] MEDS ORDERED: Sodium Chloride 0.9% 10 ML Syringe FLUSH PRN (12:15)
[2023-07-09 13:55] LABS: BASOPHILS PERCENT AUTO 0.5 % (0.0-1.0); EOSINOPHILS ABSOLUTE AUTO 0.1 K/mm3 (0.0-0.4); EOSINOPHILS PERCENT AUTO 1.9 % (0.0-6.0); HEMATOCRIT 32.8 % (37.0-47.0); HEMOGLOBIN 10.7 gm/dl (12.0-16.0); IMMATURE GRAN ABSOLUTE AUTO 0.01 K/mm3 (0.00-0.05); IMMATURE GRAN PERCENT AUTO 0.3 % (0.0-0.4); LYMPHOCYTES ABSOLUTE AUTO 0.5 K/mm3 (1.0-4.8); LYMPHOCYTES PERCENT AUTO 14.3 % (24.0-44.0); MEAN CORPUSCULAR HGB CONC 32.6 g/dl (32.0-36.0); MEAN CORPUSCULAR VOLUME 91.9 fl (83.0-99.0); MEAN PLATELET VOLUME 9.8 fl (9.4-12.3); MONOCYTES ABSOLUTE AUTO 0.4 K/mm3 (0.0-0.8); MONOCYTES PERCENT AUTO 10.2 % (0.0-8.0); NEUTROPHILS ABSOLUTE AUTO 2.7 K/mm3 (1.8-7.7); NEUTROPHILS PERCENT AUTO 72.8 % (41.0-71.0); PLATELET COUNT,PLT 143 K/mm3 (150-400); RED BLOOD CELL COUNT 3.57 M/mm3 (4.10-5.30); WHITE BLOOD CELL COUNT,WBC 3.71 K/mm3 (3.9-11.3)
[2023-07-09 14:34] LABS: A/G RATIO 0.8 (1-2); ALANINE AMINOTRANSFERASE,ALT 7 U/L (14-59); ALBUMIN 3.1 g/dl (3.4-5.0); ALKALINE PHOSPHATASE 168 U/L (46-116); ASPARTATE AMNIOTRANSFERASE,AST 16 U/L (15-37); BILIRUBIN TOTAL 0.5 mg/dL (0.2-1.0); BLOOD UREA NITROGEN,BUN 20 mg/dL (7-18); CALCIUM 9.2 mg/dL (8.5-10.1); CARBON DIOXIDE,CO2 29 mEq/L (21-32); CHLORIDE,CL 104 mEq/L (98-107); ESTIMATED GFR 57 mL/min (>60); GLUCOSE RANDOM 89 mg/dL (70-99); SODIUM,NA 142 mEq/L (136-145); TROPONIN I HIGH SENSITIVITY 21 pg/mL (<=51)
[2023-07-09] MEDS ORDERED: Acetaminophen 325 MG Tab PO ONE (17:17)
== END 2023-07-09 18:23 | disposition home or self-care (01) ==
LOC: JD.ED 11:21
DX: I72.1 Aneurysm of artery of upper extremity (principal); I95.9 Hypotension, unspecified; I11.0 Hypertensive heart disease with heart failure; I50.9 Heart failure, unspecified; E11.9 Type 2 diabetes mellitus without complications; E78.00 Pure hypercholesterolemia, unspecified; Z88.2 Allergy status to sulfonamides; Z79.899 Other long term (current) drug therapy; Z79.84 Long term (current) use of oral hypoglycemic drugs; Z86.16 Personal history of COVID-19
CPT/HCPCS: 36415; 71045; 73110; 80053; 84484; 85025; 93005; 93971; 96360; 99285; A9270; J3490; J7030; 93010; 99284